=== PATIENT | female | born 1985 | race Caucasian/White ===

== ENCOUNTER 2021-05-20 15:27 | Outpatient (REF) | payer OTHER, SELFPAY ==
[2021-05-20 16:02] LABS: MANUAL DIFF FLAG NO
[2021-05-20 16:03] LABS: Basophils Percent Auto 0.3 % (0-2); Eosinophils Absolute Auto 0.3 X10*3/uL (0.0-0.4); Eosinophils Percent Auto 2.2 % (0-4); Hematocrit 41.6 % (37-47); Imm Gran Abs Auto 0.02 X10*3/uL (0.00-0.03); Imm Gran Pct Auto 0.2 % (0.0-0.4); Lymphocytes Absolute Auto 2.9 X10*3/uL (1.2-4.9); Lymphocytes Percent Auto 25.5 % (20-40); Mean Corpuscular HGB Conc 31.3 g/dl (31.0-35.0); Mean Corpuscular Hemoglobin 25.5 pg (27.0-33.0); Mean Corpuscular Volume 81.6 fL (80-98); Monocytes Absolute Auto 0.8 X10*3/uL (0.1-1.2); Monocytes Percent Auto 6.8 % (2-11); Neutrophils Absolute Auto 7.4 X10*3/uL (2.0-8.3); Platelet Count 270 X10*3/uL (160-400); Red Cell Distribution Width 14.9 % (11.0-16.0); White Blood Count 11.3 X10*3/uL (4.8-10.8)
[2021-05-20 16:33] LABS: Alanine Aminotransferase 14 U/L (0-31); Albumin Level 4.2 g/dL (3.5-5.0); Alkaline Phosphatase 95 U/L (39-117); Aspartate Amino Transferase 18 U/L (5-31); Bilirubin Direct < 0.2 mg/dL (0.0-0.5); Bilirubin Total 0.3 mg/dL (0.0-1.0); Iron 32 mcg/dL (30-160); Percent Iron Saturation 7 % (15-50); Total Iron Binding Capacity 471 mcg/dL (228-428); Unsaturated Iron Binding 439 ug/dL
[2021-05-20 16:53] LABS: Ferritin 7 ng/mL (10-122)
== END 2021-05-20 15:28 | disposition home or self-care (01) ==
LOC: HO.LAB 15:27
PROVIDERS: PCP Internal Medicine; Visit Provider Internal Medicine
DX: K51.00 Ulcerative (chronic) pancolitis without complications (principal)
CPT/HCPCS: 36415; 80076; 82728; 83540; 85025

== ENCOUNTER 2021-07-01 14:39 | Outpatient (REF) | payer SELFPAY ==
[2021-07-03 20:11] LABS: TS Negative Control Passed; TS Panel A 0; TS Panel B 0; TS Positive Control Passed; TSpotTB Negative (SeeBelow)
== END 2021-07-01 14:40 | disposition home or self-care (01) ==
LOC: HO.LAB 14:39
PROVIDERS: PCP Internal Medicine; Visit Provider Internal Medicine
DX: K51.00 Ulcerative (chronic) pancolitis without complications (principal); Z11.1 Encounter for screening for respiratory tuberculosis
CPT/HCPCS: 36415; 86481

== ENCOUNTER 2023-02-05 09:06 | Outpatient (REF) | payer OTHER, SELFPAY ==
[2023-02-05 09:15] LABS: MANUAL DIFF FLAG NO
[2023-02-05 09:39] LABS: Basophils Percent Auto 0.5 % (0-2); Eosinophils Absolute Auto 0.2 X10*3/uL (0.0-0.4); Eosinophils Percent Auto 2.1 % (0-4); Hematocrit 43.1 % (37.0-47.0); Hemoglobin 13.6 g/dl (12.0-16.0); Imm Gran Abs Auto 0.03 X10*3/uL (0.00-0.03); Imm Gran Pct Auto 0.4 % (0.0-0.4); Lymphocytes Absolute Auto 2.3 X10*3/uL (1.2-4.9); Lymphocytes Percent Auto 29.4 % (20-40); Mean Corpuscular HGB Conc 31.6 g/dl (31.0-35.0); Mean Corpuscular Hemoglobin 28.6 pg (27.0-33.0); Mean Corpuscular Volume 90.7 fL (80.0-98.0); Mean Platelet Volume 10.7 fL (9.4-12.3); Monocytes Absolute Auto 0.5 X10*3/uL (0.1-1.2); Monocytes Percent Auto 6.2 % (2-11); Neutrophils Absolute Auto 4.8 x10*3/uL (2.0-8.3); Neutrophils Percent Auto 61.4 % (45-73); Platelet Count 247 X10*3/uL (160-400); Red Blood Count 4.75 X10*6/uL (4.20-5.50); Red Cell Distribution Width 12.7 % (11.0-16.0); White Blood Count 7.8 X10*3/uL (4.8-10.8)
[2023-02-05 10:25] LABS: Alanine Aminotransferase 15 U/L (0-31); Alkaline Phosphatase 80 U/L (39-117); Anion Gap 10 (12-20); Aspartate Amino Transferase 15 U/L (5-31); Bilirubin Total 0.5 mg/dL (0.0-1.0); Blood Urea Nitrogen 14 mg/dL (9-16); Calcium 9.5 mg/dL (8.4-10.2); Carbon Dioxide 26 mmol/L (22-29); Chloride 110 mmol/L (96-108); Cholesterol 192 mg/dL; Estimated Glomerular Filt Rate > 60; Glucose Random 90 mg/dL (60-115); HDL Cholesterol 40 mg/dL; LDL Cholesterol Calculated 136 mg/dl; Potassium 4.7 mmol/L (3.3-5.1); Sodium 141 mmol/L (135-145); Total Protein 7.1 g/dL (6.5-8.0); Triglycerides 80 mg/dL
[2023-02-05 10:33] LABS: HBS Num1 116.58 mIU/mL (0-7.99); TSH reflex Free T4 0.62 uIU/mL (0.32-4.0); Vitamin D 25-OH Total 32.3 ng/mL (>30); ~Hepatitis B Surface Antibody REACTIVE (Nonreactive)
[2023-02-07 01:23] LABS: Rubeola IgG (Measles) >300.00 AU/mL
[2023-02-07 01:33] LABS: Rubella IgG Antibody 2.31 Index
[2023-02-07 13:42] LABS: TS Negative Control Passed; TS Panel A 0; TS Panel B 0; TS Positive Control Passed; TSpotTB Negative (Negative)
== END 2023-02-05 09:07 | disposition home or self-care (01) ==
LOC: HO.LAB 09:06
PROVIDERS: PCP Internal Medicine; Visit Provider Nurse Practitioner Family
DX: Z01.84 Encounter for antibody response examination (principal); Z13.0 Encounter for screening for diseases of the blood and blood-forming organs and certain disorders involving the immune mechanism; Z13.220 Encounter for screening for lipoid disorders; Z13.1 Encounter for screening for diabetes mellitus; Z13.29 Encounter for screening for other suspected endocrine disorder; Z13.21 Encounter for screening for nutritional disorder
CPT/HCPCS: 36415; 80053; 80061; 82306; 84443; 85025; 86481; 86706; 86735; 86762; 86765

== ENCOUNTER 2023-02-22 09:00 | Outpatient (REF) | payer OTHER, SELFPAY | END 2023-02-22 09:01 | disposition home or self-care (01) | LOC: HO.LAB 09:00 | PROVIDERS: PCP Internal Medicine; Visit Provider Internal Medicine | DX: R76.0 Raised antibody titer (principal) | CPT/HCPCS: 36415; 86787 ==

== ENCOUNTER 2023-06-01 15:01 | Outpatient (AMB) | payer OTHER, SELFPAY ==
[2023-06-01 15:04] VITALS: BP 122/62; BMI 22.6
--- NOTE | 2023-06-01 15:04 | A.OFFVIS_ITS ---
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 she had a in [facility]. she was diagnosed with ulcerative colitis which took a while to figure out and then COVID hit so she has not been here since all of that happened. She has never had an abnormal Pap smear her had a vasectomy when there baby was of couple months old so she has not needed control since she gets regular periods. Sometimes she gets folliculitis in her groin and it comes and goes. She is on the tail end of her period Now. 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 Medical History (Updated 06/01/23 @ 15:55 by Lima Moore CNM) JONAS (iron deficiency anemia) Ulcerative (chronic) pancolitis without complications Surgical History Previous section Social History Housing: House Patient Tobacco Use Status: Never used Tobacco Tobacco use type: Cigarette e-Cigarette/Vaping Use: Never Used service: No Current occupational status: employed and student Female Reproductive History Menstrual Date of last menstrual period: 05/23/23 Total pregnancies: 4 Number of Living Children: 3 Ab spontaneous: 1 Physical Exam Vital Signs: Last Vital Signs BP 122/62 06/01/23 15:04 BMI result Body Mass Index 22.6 Const General: healthy appearing, comfortable, no acute distress, well developed and alert Nutritional Appearance: average body habitus Orientation/consciousness: patient oriented x3 Limitations: no limitations HEENT Head: Yes normocephalic Neck Neck: Yes normal visual inspection Chest Chest palpation & inspection: normal inspection of the chest Breast/axilla inspection: normal inspection of the breasts and normal inspection of the axillae Breast/axilla palpation: normal palpation of the breasts and normal palpation of the axillae Resp Effort & Inspection: normal respiratory effort GI Inspection: Yes normal to inspection, No Abdominal wall edema and No distended Palpation (GI): Soft to palpation and nontender Other: Very well-healed scar. External exam difficult to see evidence of past folliculitis in groin that is extremely well healed and not swollen or inflamed at all vagina is pink and moist. Cervix is parous pink moist with normal discharge consistent with end of menses. Uterus is small anteverted mobile nontender. Adnexa nontender. Fair to good tone with Kegel. General: Yes bladder normal to palpation External Female Exam: normal external appearance and normal appearance of the urethra Speculum Exam - Vagina: normal appearance of the vagina, normal palpation and normal vaginal discharge Speculum Exam - Cervix: normal appearance of the cervix, normal palpation and nontender Bimanual exam- vagina & uterus: normal bimanual exam, normal palpation, uterine size normal, bladder normal to palpation, consistency normal, normal palpation, uterine mobility normal, uterine shape normal, No Cervical tenderness present, non-tender and no cervical motion tenderness Bimanual Exam- Adnexa, other: normal adnexae, no masses, normal and No adnexal tenderness Neuro General: patient oriented x3 Assessment & Plan Assessment & Plan (1) Well woman exam with routine gynecological exam: Code(s): Z01.419 - Encounter for gynecological examination (general) (routine) without abnormal findings (2) Cervical cancer screening: Code(s): Z12.4 - Encounter for screening for malignant neoplasm of cervix (3) Screen for sexually transmitted diseases: Code(s): Z11.3 - Encounter for screening for infections with a predominantly sexual mode of transmission (4) Breast cancer screening: Code(s): Z12.39 - Encounter for other screening for malignant neoplasm of breast (5) Relies on partner vasectomy for contraception: Code(s): Z91.89 - Other specified personal risk factors, not elsewhere classified Plan -----Discussed in this visit the following: healthy balanced diet, regular and consistent exercise, getting recommended health screens, doing the best she can for her particular health concerns, kegel exercises, pap smear screening and followup recommendations, mammography screening and SBE, normal changes in cycles in her life stage--- . Orders: Orders Bacterial Vaginosis Panel Today Z01.419 - Encounter for gynecological examination (general) (routine) without abnormal findings CT NG by PCR Today Z01.419 - Encounter for gynecological examination (general) (routine) without abnormal findings Pap Smear Today Z01.419 - Encounter for gynecological examination (general) (routine) without abnormal findings Coding Level of Care Code New Pt Prev Care 18-39yr([id number] Diagnoses Well woman exam with routine gynecological exam Z01.419 Cervical cancer screening Z12.4 Screen for sexually transmitted diseases Z11.3 Breast cancer screening Z12.39 Relies on partner vasectomy for contraception Z91.89
== END 2023-06-04 07:22 | disposition home or self-care (01) ==
LOC: HO.HWS 15:01
PROVIDERS: PCP Internal Medicine; Visit Provider Advanced Practice Midwife
DX: Z01.419 Encounter for gynecological examination (general) (routine) without abnormal findings (principal); Z12.4 Encounter for screening for malignant neoplasm of cervix; Z11.3 Encounter for screening for infections with a predominantly sexual mode of transmission; Z12.39 Encounter for other screening for malignant neoplasm of breast; Z91.89 Other specified personal risk factors, not elsewhere classified
CPT/HCPCS: 99385

== ENCOUNTER 2023-06-01 15:01 | Outpatient (REF) | payer OTHER, SELFPAY ==
[2023-06-02 04:42] LABS: CT PCR NOT DETECTED (Not Detect.); NG PCR NOT DETECTED (Not Detect.)
[2023-06-02 12:50] LABS: BV Int Neg Control Negative (Negative); BV Int Pos Control Positive (Positive)
[2023-06-09 03:14] LABS: HPV mRNA E6/E7 rflx Not Detected (Not Detected)
== END 2023-06-01 15:02 | disposition home or self-care (01) ==
LOC: HO.LNP 15:01
PROVIDERS: PCP Internal Medicine; Visit Provider Advanced Practice Midwife
DX: Z01.419 Encounter for gynecological examination (general) (routine) without abnormal findings (principal); Z11.51 Encounter for screening for human papillomavirus (HPV)
CPT/HCPCS: 0353U; 87480; 87510; 87624; 87660; 88142

== ENCOUNTER 2023-12-07 22:59 | Emergency (ER) | payer OTHER, SELFPAY ==
[2023-12-07 23:03] VITALS: BP 113/76; PULSE 67; RESP 16; TEMP 36.7; O2SAT 98; BMI 22.5
[2023-12-07 23:34] LABS: MANUAL DIFF FLAG NO
[2023-12-07 23:35] LABS: Basophils Percent Auto 0.5 % (0-2); Eosinophils Percent Auto 0.9 % (0-4); Hematocrit 43.2 % (37.0-47.0); Hemoglobin 14.6 g/dl (12.0-16.0); Imm Gran Abs Auto 0.01 X10*3/uL (0.00-0.03); Imm Gran Pct Auto 0.2 % (0.0-0.4); Lymphocytes Percent Auto 46.9 % (20-40); Mean Corpuscular HGB Conc 33.8 g/dl (31.0-35.0); Mean Corpuscular Hemoglobin 29.3 pg (27.0-33.0); Mean Corpuscular Volume 86.7 fL (80.0-98.0); Mean Platelet Volume 10.7 fL (9.4-12.3); Monocytes Absolute Auto 0.7 X10*3/uL (0.1-1.2); Monocytes Percent Auto 16.9 % (2-11); Neutrophils Absolute Auto 1.5 x10*3/uL (2.0-8.3); Neutrophils Percent Auto 34.6 % (45-73); Platelet Count 151 X10*3/uL (160-400); Red Blood Count 4.98 X10*6/uL (4.20-5.50); Red Cell Distribution Width 12.1 % (11.0-16.0); White Blood Count 4.3 X10*3/uL (4.8-10.8)
[2023-12-07 23:37] VITALS: BP 97/66; PULSE 66; RESP 17; TEMP 36.6; O2SAT 98
[2023-12-07 23:46] LABS: IDNOW Serial# 08D9AD1C; Influenza A Positive (Negative)
[2023-12-07 23:48] LABS: COVID-19 Test Negative (Negative); IDNOW Serial# 152EDE1D
[2023-12-07 23:51] LABS: Influenza B2 Negative (Negative)
[2023-12-07 23:53] LABS: Alanine Aminotransferase 19 U/L (0-31); Albumin Level 3.7 g/dL (3.5-5.0); Alkaline Phosphatase 77 U/L (39-117); Anion Gap 12 (12-20); Aspartate Amino Transferase 25 U/L (5-31); Bilirubin Direct < 0.2 mg/dL (0.0-0.5); Bilirubin Total 0.2 mg/dL (0.0-1.0); Blood Urea Nitrogen 9 mg/dL (9-16); Carbon Dioxide 24 mmol/L (22-29); Chloride 103 mmol/L (96-108); Creatinine Clr Calc Pharmacy 97.1; Estimated Glomerular Filt Rate > 60; Glucose Random 120 mg/dL (60-115); Lipase 24 U/L (8-78); Potassium 2.7 mmol/L (3.3-5.1); Sodium 136 mmol/L (135-145); Total Protein 7.3 g/dL (6.5-8.0)
[2023-12-08] MEDS: Acetaminophen 325 MG TABLET 975 MG PO (00:01)
[2023-12-08] MEDS: Ibuprofen 400 MG TABLET PO (00:01)
[2023-12-08] MEDS: ondansetron HCL 4 MG/2 ML VIAL IVPUSH (00:01)
[2023-12-08] MEDS: 0.9 % Sodium Chloride 1,000 ML 999 ML IV (00:02)
[2023-12-08 00:06] LABS: Magnesium 1.6 mg/dL (1.6-2.6)
--- NOTE | 2023-12-08 00:15 | ED.NAVMDI ---
HPI - Nausea/Vomiting/Diarrhea General Chief complaint: Nausea/Vomiting/Diarrhea Stated complaint: GI symptoms Time Seen by Provider: 12/07/23 23:38 Source: patient Mode of arrival: ambulatory History of Present Illness HPI Narrative: 38-year-old female presents with persistent cough/fever/headache since Sunday with intermittent nausea/vomiting/diarrhea. Patient states that today his in the 1st day she has been able to tolerate some liquids but otherwise has decreased p.o. intake and states feeling weak. Related Data Home Medications Medication Instructions Recorded Confirmed adalimumab 40 mg/0.8 mL mg subcut 01/25/23 06/01/23 subcutaneous pen kit (Humira Pen) Previous Rx's Medication Instructions Recorded metronidazole 0.75 % (37.5 mg/5 1 appful vaginal BEDTIME 5 days 06/26/23 gram) vaginal gel #70 grams ondansetron 4 mg disintegrating 4 mg PO Q8H PRN nausea and 12/08/23 tablet vomiting 4 days #10 tabs Allergies Allergy/AdvReac Type Severity Reaction Status Date / Time No Known Allergies Allergy Verified 12/07/23 23:07 [No Known Allergies*] Review of Systems Review of Systems: Pertinent positives and negatives as stated in HPI PMFSH Past Medical History Source: nursing notes reviewed Medical History JONAS (iron deficiency anemia) Ulcerative (chronic) pancolitis without complications Surgical History Previous section Social History Social History Housing: House Patient Tobacco Use Status: Never used Tobacco Tobacco use type: Cigarette e-Cigarette/Vaping Use: Never Used Advance Directives: No Advance Directives Information Provided: No service: No Current occupational status: employed and student Physical Exam Vital Signs: Vital Signs: Last Vital Signs Temp 97.8 F 12/07/23 23:37 Pulse 66 12/07/23 23:37 Resp 17 12/07/23 23:37 BP 97/66 12/07/23 23:37 Pulse Ox 98 12/07/23 23:37 O2 Del Method Room Air 12/07/23 23:37 BMI result Body Mass Index 22.5 VITAL SIGNS: Reviewed. GENERAL: Well developed, well nourished, in no acute distress. HEAD: Normocephalic/atraumatic EYES: PERRLA, EOMI EARS: Ext canals without abnormality, TMs non-bulging and non-erythematous NOSE: Nasal congestion OROPHARYNX: no oral lesions noted, posterior pharynx clear and non-erythematous without noted tonsillar enlargement/erythema/exudates NECK: Supple, no adenopathy LUNGS: Normal breath sounds. No adventitious sounds or accessory muscle use. SpO2<98> CARDIOVASCULAR: Regular rate and rhythm without noted murmurs ABDOMEN: Soft, non-tender, non-distended with bowel sounds. MUSCULOSKELETAL: No tenderness, deformities, or effusions noted on gross inspection. EXTREMITIES: No cyanosis, clubbing or edema. SKIN: Inspection of the skin reveals no rashes NEUROLOGIC: Alert and oriented x 4. Strength and sensation to light touch were grossly intact x 4. Medications Administered Discontinued Medications Generic Name Dose Route Start Last Admin Trade Name Freq PRN Reason Stop Dose Admin Acetaminophen 975 mg 12/07/23 23:53 12/08/23 00:01 Acetaminophen 325 Mg Tablet PO 12/07/23 23:54 975 mg ONCE ONE Administration Sodium Chloride 1,000 mls @ 999 mls/hr 12/07/23 23:45 12/08/23 00:02 Ns IV 12/08/23 00:45 999 mls/hr .Q1H1M KSENIA Administration Magnesium Sulfate/Dextrose 1 gm in 100 mls @ 300 mls/hr 12/08/23 00:18 12/08/23 01:29 Magnesium Sulfate/D5w IV 12/08/23 00:37 300 mls/hr ONCE ONE Administration Ibuprofen 400 mg 12/07/23 23:53 12/08/23 00:01 Ibuprofen 400 Mg Tablet PO 12/07/23 23:54 400 mg ONCE ONE Administration Ondansetron HCl 4 mg 12/07/23 23:54 12/08/23 00:01 Ondansetron Hcl 4 Mg/2 Ml Vial IVPUSH 12/07/23 23:55 4 mg ONCE ONE Administration Potassium Chloride 60 meq 12/08/23 00:18 12/08/23 01:29 Potassium Chloride Er 20 Meq Tab.Er.Prt PO 12/08/23 00:19 60 meq ONCE ONE Administration Medical Decision Making Medical Decision Making MDM Narrative: 38-year-old female with history and clinical presentation, DDX: Viral illness, gastroenteritis, , UTI I reviewed all investigations and hematologic indices consistent with viral illness with a slight leukopenia and thrombocytopenia no evidence of anemia. Chemistry indices without demonstrated DELFINO but borderline magnesium and low potassium for which patient will receive 1 g magnesium sulfate followed by 2-10 mEq potassium chloride via IV and 60 mEq orally. Patient also received 1 L of IV fluids. Viral testing positive for flu. Signed out to Dr You adame/mohamud after IVF and electrolytes Differential Diagnosis Differential Diagnoses: The differential diagnosis associated with the presentation includes Please see the discussion above Admission/Observation Consideration of admission/observation: Escalation of care including admission/observation considered Please see the discussion above Lab Data MDM Lab Attestation statement: I reviewed the patient's lab results. Please see the discussion above 12/07/23 23:26 12/07/23 23:26 Labs: Lab Results 12/07/23 Range/Units 23:26 WBC 4.3 L (4.8-10.8) X10*3/uL RBC 4.98 (4.20-5.50) X10*6/uL Hgb 14.6 (12.0-16.0) g/dl Hct 43.2 (37.0-47.0) % MCV 86.7 (80.0-98.0) fL MCH 29.3 (27.0-33.0) pg MCHC 33.8 (31.0-35.0) g/dl RDW 12.1 (11.0-16.0) % Plt Count 151 L D (160-400) X10*3/uL MPV 10.7 (9.4-12.3) fL Immature Gran % (Auto) 0.2 (0.0-0.4) % Neut % (Auto) 34.6 L (45-73) % Lymph % (Auto) 46.9 H (20-40) % [place] % (Auto) 16.9 H (2-11) % Eos % (Auto) 0.9 (0-4) % Baso % (Auto) 0.5 (0-2) % Lymph # (Auto) 2.0 (1.2-4.9) X10*3/uL Sweet [place] # (Auto) 0.7 (0.1-1.2) X10*3/uL Eos # (Auto) 0.0 (0.0-0.4) X10*3/uL Baso # (Auto) 0.0 (0.0-0.2) X10*3/uL Abs Immat Gran (auto) 0.01 (0.00-0.03) X10*3/uL Absolute Neuts (auto) 1.5 L (2.0-8.3) x10*3/uL Absolute Nucleated RBC 0.000 (0.0-0.012) X10*3/uL Nucleated RBC % (auto) 0.0 (0.0-0.2) /100WBC Sodium 136 (135-145) mmol/L Potassium 2.7 L* (3.3-5.1) mmol/L Chloride 103 (96-108) mmol/L Carbon Dioxide 24 (22-29) mmol/L Anion Gap 12 (12-20) BUN 9 (9-16) mg/dL Creatinine 0.70 (0.5-1.4) mg/dL Estim Creat Clear Calc 97.1 Estimated GFR > 60 Random Glucose 120 H (60-115) mg/dL Calcium 9.0 (8.4-10.2) mg/dL Magnesium 1.6 (1.6-2.6) mg/dL Total Bilirubin 0.2 (0.0-1.0) mg/dL Direct Bilirubin < 0.2 (0.0-0.5) mg/dL AST 25 (5-31) U/L ALT 19 (0-31) U/L Alkaline Phosphatase 77 (39-117) U/L Total Protein 7.3 (6.5-8.0) g/dL Albumin 3.7 (3.5-5.0) g/dL Lipase 24 (8-78) U/L COVID-19 (LIZETH) Negative (Negative) COVID-19 Clin Com See Note Influenza Type A (VERONIQUE) Positive A (Negative) Influenza Type B (VERONIQUE) Negative (Negative) Influenza A & B Note See Note External Record Review External record reviewed: Outpatient record and Prior outpatient labs Critical Care Time Critical Care Time Critical Care Time: Yes Total Critical Care Time: 30 Attestation: I personally attest to this time spent taking care of the patient. Discharge Plan Discharge Clinical Impression: Dehydration, Viral syndrome, Influenza A, Hypokalemia Patient Disposition: Home, Self-Care Instructions: Dehydration (ED), Potassium Content of Foods List (ED), Hypokalemia (ED), Influenza (ED), Viral Syndrome (ED) Additional Instructions: 1. Continue to stay well hydrated. 2. Follow-up with your primary care doctor. Return to the ER for any worsening symptoms. Prescriptions: New ondansetron 4 mg tablet,disintegrating 4 mg PO Q8H PRN (Reason: nausea and vomiting) 4 Days Qty: 10 0RF No Action metronidazole 0.75 % (37.5mg/5 gram) gel 1 appful vaginal BEDTIME 5 Days Qty: 70 0RF Humira Pen 40 mg/0.8 mL pen injector kit subcut
[2023-12-08] MEDS: Magnesium Sulfate/D5W 1 GM/100 ML PIGGYBACK IV (01:29)
[2023-12-08] MEDS: Potassium Chloride ER 20 MEQ TAB.ER.PRT 60 MEQ PO (01:29)
[2023-12-08] MEDS: Potassium Chloride/H20 10 MEQ/100 ML PIGGYBACK 100 MEQ IV ×2 (02:39→03:55)
[2023-12-08 05:18] VITALS: BP 102/72; PULSE 67; RESP 18; O2SAT 98
== END 2023-12-08 05:38 | disposition home or self-care (01) ==
PROVIDERS: Student in an Organized Health Care Education/Training Program; Emergency Provider Internal Medicine
DX: J10.1 Influenza due to other identified influenza virus with other respiratory manifestations (principal); B34.9 Viral infection, unspecified; E86.0 Dehydration; E87.6 Hypokalemia; Z11.52 Encounter for screening for COVID-19; R11.2 Nausea with vomiting, unspecified; R51.9 Headache, unspecified; R05.9 Cough, unspecified
CPT/HCPCS: 36415; 80053; 82248; 83690; 83735; 85025; 87502; 87635; 96361; 96365; 96367; 96375; 99284; 99285; J2405; J3475; J3480

== ENCOUNTER 2024-02-19 13:47 | Outpatient (AMB) | payer OTHER, SELFPAY ==
--- NOTE | 2024-02-19 13:58 | A.OFFPC_ITS ---
Vital Signs 3 02/19/24 14:09 Height 5 ft 5 in Weight 139 lb 4 oz BMI 23.2 BP 98/62 Blood Pressure Location Lt brachial Position Sitting Respiration 12 Pulse 65 Pulse Source Pulse Oximeter Temp 98.4 F Temp Source Oral Pulse Oximetry (%) 97 Oxygen Delivery Method Room Air Intake Visit Reasons: Arm Gout Intake Note: Growth on right arm and head. 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 Is last menstrual period known: Yes Last menstrual period: 02/12/24 Patient : No Allergies No Known Allergies [No Known Allergies*] Allergy (Verified 02/19/24 13:59) Tobacco use date assessed: 02/19/24 Dental Screening Dental Screen Date: 02/19/24 Did you have a dental visit in the last 12 months?: No Did you have a dental problem in the last 6 months where you did not have access to dental care?: Yes Was dental information given to patient?: Patient has dentist [facility] Medical History JONAS (iron deficiency anemia) Ulcerative (chronic) pancolitis without complications Surgical History Previous section Family History (Updated 02/19/24 @ 14:10 by Rhonda Guillermo CMA) Father Alcoholism Social History Housing: House Patient Tobacco Use Status: Never used Tobacco Tobacco use type: Cigarette e-Cigarette/Vaping Use: Never Used Second Hand Smoke Exposure: No Patient : No service: No Current occupational status: employed and student 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[employer] Current occupational exposures/hazards: No Cognitive needs: No Hearing needs: No Vision needs: No Female Reproductive History Menstrual Date of last menstrual period: 02/12/24 Questionnaire PHQ-9 Over the last 2 weeks, how often have you been bothered by any of the following problems? 1. Little interest or pleasure in doing things: not at all 2. Feeling down, depressed, or hopeless: not at all 3. Trouble falling or staying asleep, or sleeping too much: not at all 4. Feeling tired or having little energy: not at all 5. Poor appetite or overeating: not at all 6. Feeling bad about yourself - or that you are a failure or have let yourself or your family down: not at all 7. Trouble concentrating on things, such as reading the newspaper or watching television: not at all 8. Moving or speaking so slowly that other people could have noticed. Or the opposite - being so fidgety or restless that you have been moving around a lot more than usual: not at all 9. Thoughts that you would be better off or of hurting yourself in some way: not at all Total score: 0 Depression Screening Interpretation: Negative (noted) Depression Screening Done: Yes 20343 - PHQ-9 Billing: Yes Source: Developed by Drs. Aniceto Donaldson, Radha Cisneros, Jake Gtz and colleagues, with an educational rafael from [email or web address] Thrive Questionnaire Date Thrive assessed: 02/19/24 I am a: Patient What is your living situation today?: I have a place to live, but I am worried about losing it in the future Within the past 12 months, did the food you bought not last and you didn't have the money to get more?: Never true Within the past 12 months, did you worry whether your food would run out before you got money to buy more?: Never true Do you have trouble paying for medicines?: No Do you have trouble getting transportation to medical appointments?: No Do you have trouble paying your heating and electricity bill?: No Do you have trouble taking care of your child, family member or friend?: No Do you have trouble with day-to-day activities such as bathing, preparing meals, shopping, managing finances, etc.?: No Are you currently unemployed and looking for a job?: No Are you interested in more education?: No Please select the resources that you would like help with: None THRIVE Score: 1 VIVIEN-7 AMB Questionnaire VIVIEN-7 Date VIVIEN - 7 assessed: 02/19/24 Feeling nervous, anxious, or on edge: 0 = Not at all Not being able to stop or control worryin = Not at all Worrying too much about different things: 0 = Not at all Trouble relaxin = Not at all Being so restless that it is hard to sit still: 0 = Not at all Becoming easily annoyed or irritable: 0 = Not at all Feeling afraid as if something awful might happen: 0 = Not at all Total VIVIEN-7 score (0-4 normal; 5-9 mild; 10-14 moderate; 15-21 severe): 0 Source: Developed by Drs. Aniceto Donaldson, Radha Cisneros, Jake Gtz and colleagues, with an educational rafael from [email or web address]. VIVIEN-7 Assessment Billing VIVIEN-7 Assessment Tool: VIVIEN-7 Assessment 03998 Review of Systems Const Details: see HPI Physical exam (Primary Care) Tobacco/Smoking Status: Tobacco use Status Tobacco use date assessed 02/19/24 02/19/24 14:02 Patient Tobacco Use Status Never used Tobacco 02/19/24 14:02 Tobacco use type Cigarette 02/19/24 14:02 e-Cigarette/Vaping Use Never Used 02/19/24 14:02 Depression Screening Interpretation: Negative (noted) Thrive Assessment: Date of Thrive Assessment Date Thrive assessed 01/25/23 02/19/24 14:02 Const Other: PHYSICAL EXAM: GENERAL: Alert and oriented x 3. NAD EYES: EOMI. Anicteric. HENT: Moist mucous membranes. LUNGS: Clear to auscultation CARDIOVASCULAR: Regular rate and rhythm. ABDOMEN: Soft, non-tender EXTREMITIES: No edema. Non-tender. SKIN: see below NEUROLOGIC: No focal neurological deficits PSYCHIATRIC: Cooperative. Appropriate mood and affect. HENMT Head: Yes scalp lesion (raised roughened erythematous lesions ~0.5cm midline frontal scalp) Head images: 2 1. see notes Skin Lesions: lesion noted (right forearm) right forearm size (0.5cm), borders well- defined, consistency and morphology dome-shaped Assessment and Plan Assessment & Plan (1) JONAS (iron deficiency anemia): Comment: recheck abnormal 11/2023 labs (flu at the time) Code(s): D50.9 - Iron deficiency anemia, unspecified (2) Rash and nonspecific skin eruption: Comment: referral to dermatology to r/o BCC Code(s): R21 - Rash and other nonspecific skin eruption (3) Ulcerative (chronic) pancolitis without complications: Code(s): K51.00 - Ulcerative (chronic) pancolitis without complications Orders: Orders 2 Complete Blood Count Man Dif Today R79.89 - Other specified abnormal findings of blood chemistry Referrals 2 Dermatology Referral R21 - Rash and other nonspecific skin eruption Coding Level of Care Code Est Pt Level 4 (25879) Diagnoses JONAS (iron deficiency anemia) D50.9 Rash and nonspecific skin eruption R21 Ulcerative (chronic) pancolitis without complications K51.00 Additional Codes VIVIEN-7 Assessment Billing - VIVIEN-7 Assessment Tool: VIVIEN-7 Assessment [id number] ([id number])
[2024-02-19 14:09] VITALS: BP 98/62; PULSE 65; RESP 12; TEMP 36.9; O2SAT 97; BMI 23.2
== END 2024-02-19 15:23 | disposition home or self-care (01) ==
PROVIDERS: Visit Provider Internal Medicine
DX: D50.9 Iron deficiency anemia, unspecified (principal); R21 Rash and other nonspecific skin eruption; K51.00 Ulcerative (chronic) pancolitis without complications
CPT/HCPCS: 99213

== ENCOUNTER 2024-06-03 09:10 | Outpatient (REF) | payer OTHER, SELFPAY ==
[2024-06-06 13:44] LABS: HPV mRNA E6/E7 Not Detected (Not Detected)
== END 2024-06-03 09:11 | disposition home or self-care (01) ==
LOC: HO.LNP 09:10
PROVIDERS: PCP Internal Medicine; Visit Provider Advanced Practice Midwife
DX: Z01.419 Encounter for gynecological examination (general) (routine) without abnormal findings (principal); Z11.51 Encounter for screening for human papillomavirus (HPV)
CPT/HCPCS: 87624; 88175

== ENCOUNTER 2024-06-03 09:10 | Outpatient (AMB) | payer OTHER, SELFPAY ==
--- NOTE | 2024-06-03 09:14 | A.OFFVIS_ITS ---
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 Doing well with no concerns. She tries to eat healthy and stays active with exercise. Regular monthly menses x7d. Currently is sexually active, vasectomy. She denies vaginal itching and irritation. STI screening offered; she declines. Denies family history of ovarian or colon cancer. FH breast cancer-maternal cousin. Last pap smear 2022, ASCUS, prior Pap 2007 with ASCUS. Had negative pap screenings in [place], no records available. [facility] Medical History (Updated 06/03/24 @ 09:58 by Renetta Castellano CNM) JONAS (iron deficiency anemia) Ulcerative (chronic) pancolitis without complications Surgical History Previous section Family History (Updated 06/03/24 @ 09:19 by MERNA Rosario) Father Alcoholism Family/Other History of breast cancer Social History (Updated 06/03/24 @ 09:53 by Renetta Castellano CNM) Housing: House Alcohol intake: current Alcohol intake frequency: holidays/special occasions only Patient Tobacco Use Status: Never used Tobacco Tobacco use type: Cigarette e-Cigarette/Vaping Use: Never Used Second Hand Smoke Exposure: No service: No Current occupational status: employed and student 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[employer], 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[employer] Current occupational exposures/hazards: No Sexual orientation: Straight/Heterosexual Gender identity: Female Cognitive needs: No Hearing needs: No Vision needs: No Female Reproductive History Menstrual Duration of menses: 6-7 days Date of last menstrual period: 05/27/24 control method: other (vasectomy) Total pregnancies: 4 Full term: 3 Number of Living Children: 3 Ab spontaneous: 1 Date of last pap smear: 06/27/21 ([place]) History of abnormal pap smear: Yes (2007 ascus) Review of Systems Const All systems reviewed & are unremarkable except as noted in HPI and below Reports as per HPI Eyes Reports no additional complaints ENT Reports no additional complaints Card Reports no additional complaints Resp Reports no additional complaints GI Reports as per HPI and Reports no additional complaints Reports as per HPI Musc Reports no additional complaints Skin/Breast Reports as per HPI Neuro Reports no additional complaints Psych Reports no additional complaints Endo Reports no additional complaints Marcos/Lymph Reports no additional complaints Aller/Immun Reports no additional complaints Physical Exam Vital Signs: Last Vital Signs BP 100/64 06/03/24 09:15 BMI result Body Mass Index 22.0 Const General: cooperative, healthy appearing, no acute distress, well developed and alert Orientation/consciousness: patient oriented x3 HEENT Head: Yes normal to inspection Eyes General: appearance normal, both eyes and all related structures Neck Neck: Yes normal visual inspection Thyroid: Thyroid normal Chest Chest palpation & inspection: normal inspection of the chest and other (no puckering, dimpling, peau de orange, retraction, discharge, masses) Breast/axilla inspection: normal inspection of the breasts Breast/axilla palpation: normal palpation of the breasts Resp Effort & Inspection: normal respiratory effort GI Inspection: Yes normal to inspection Palpation (GI): Soft to palpation Rectal Exam - Female: deferred General: Yes bladder normal to palpation External Female Exam: normal external appearance and normal appearance of the urethra Speculum Exam - Vagina: normal appearance of the vagina, normal palpation and normal vaginal discharge Speculum Exam - Cervix: normal appearance of the cervix and normal palpation Bimanual exam- vagina & uterus: normal bimanual exam, normal palpation, uterine size normal, bladder normal to palpation, normal palpation and non-tender Bimanual Exam- Adnexa, other: no masses Skin General skin exam: no rashes or lesions noted Rashes: no rashes Neuro General: patient oriented x3 Cognition (Neuro): normal cognition Extrem General: Yes normal to inspection Psych Attitude: cooperative Thought process: Normal thought process present Assessment & Plan Assessment & Plan (1) Well woman exam with routine gynecological exam: Code(s): Z01.419 - Encounter for gynecological examination (general) (routine) without abnormal findings Category: Medical Plan Discussed: Current recommendations for pap smears per ASCCP guidelines. Breast awareness and periodic breast exams. Maintain a healthy lifestyle including a well balanced diet and routine exercise. Mammogram after 40th. Patient verbalizes understanding and agrees to the plan of care. She was given opportunity to ask questions and all questions were answered to the best of my ability. RTO in one year for annual technical clerk examination. This note is constructed using voice recognition software. While every effort has been made to ensure accuracy, funeral professional errors may have been included. Orders: Orders MM tomosynthesis screening BI 07/21/24 Z12.31 - Encounter for screening mammogram for malignant neoplasm of breast PAP + HPV E6/E7 rfx Today Z01.419 - Encounter for gynecological examination (general) (routine) without abnormal findings Coding Level of Care Code Est Pt Prev Care 18-39y(98012) Diagnoses Well woman exam with routine gynecological exam Z01.419
[2024-06-03 09:15] VITALS: BP 100/64; BMI 22.0
== END 2024-06-03 09:57 | disposition home or self-care (01) ==
PROVIDERS: PCP Internal Medicine; Visit Provider Advanced Practice Midwife
DX: Z01.419 Encounter for gynecological examination (general) (routine) without abnormal findings (principal)
CPT/HCPCS: 99395

== ENCOUNTER 2025-08-10 22:28 | Emergency (ER) | payer OTHER, SELFPAY ==
[2025-08-10 22:34] VITALS: BP 109/65; PULSE 55; RESP 16; TEMP 36.2; O2SAT 100; BMI 19.4
--- OUTSIDE RECORDS SUMMARY | 2025-08-10 22:58 | XMS_ITS | Patient Health Record ---
Author Organization [facility] Address [address] [place] [address] Care Team Providers Care Resident Assistant Name Role Phone Magdalena Rosario Primary Care Provider UnavailAniceto Calles Unavailable [phone] Allergies Allergen (clinical drug ingredient) Drug/Non Drug Allergy documented on EMR Reaction Allergy Type Onset Date Status Seasonal IC Unknown Drug Allergy Activ e Reason For Referral No Information Medications Medication SIG (Take, Route, Frequency, Duration) Notes Start Date End Date Status Mesalamine 800 MG 1 tablet Orally Thre e times a day; Duration: 30 day(s) 02/08/2018 Not-Taking Apriso 0.375 GM 4 capsules in the morning Orally Once a day; Duration: 90 days 08/03/2020 Not-Taking Humira Pen 40 MG/0.8ML inject one pen subcutaneously every other week. refrigerate. Although reports that she was only using them every other week at the 04/2021 OV Active Humira Pen 40 MG/0.8ML 1 Subcutaneous Every other week 01/04/2023 Active Humira (2 Pen) 40 MG/0.8ML INJECT 40MG SUBCUTANEOUSLY WEEKLY; Duration: 28 Active Apriso 0.375 GM TAKE 4 CAPSULES BY MOUTH IN THE MORNING ONCE A DAY; Duration: 90 Not-Taking Omeprazole 20 MG 1 Orally Once a day for reflux; Duration: 30 day(s) Not-Taking Immunizations Vaccine Route Administration Date Status Comme nts Influenza Unknown 12/11/2018 Refused Influenza Unknown 09/29/2020 Refused Social History Tobacco Use: Social History Observation Description Date Details (start date - stop date) Never Smoker NA - NA Tobacco Use/Smoking Question Answer Notes Patient is a nonsmoker Alcohol Screen Question Answer Notes Did you have a drink contain ing alcohol in the past year? Yes How often did you have a dri nk containing alcohol in the past year? Never (0 point) How many drinks did you have on a typical day when you were drinking in the past year? 1 or 2 drinks (0 point) How often did you have 6 or more drinks on one occasion in the past year? Never (0 point) Points 0 Interpretation Negative Section Notes: Nonsmoker; no sig alcohol Nonsmoker; no sig alcohol Nonsmoker; no sig alcohol Nonsmoker; no sig alcohol Nonsmoker; no sig alcohol Nonsmoker; no sig alcohol Nonsmoker; no sig alcohol Nonsmoker; no sig alcohol Problems Problem Type SNOMED Code ICD Code Onset Dates Problem Status W/U Status Risk Notes Problem Epigastric pain (39043807) Epigastric abdominal pain (R10.13) Active confirmed Problem Iron deficiency anemia due to chronic blood loss (912437293) Iron deficiency anemia due to chronic blood loss (D50.0) Active confirmed Problem Gastroesophageal reflux disease (123803511) GERD (gastroesophagea l reflux disease) (K21.9) Active confirmed Problem Chronic ulcerative pancolitis (029662276) Ulcerative pancolitis without complication (K51.00) Active confirmed Problem Anemia (842262965) Anemia, unspecified type (D64.9) Active confirmed Problem Diarrhea (40075168) Diarrhea, unspecified type (R19.7) Active confirmed Problem Chronic ulcerative pancolitis (673323515) Ulcerative chronic pancolitis without complications (K51.00) Active confirmed Plan Of Treatment Pending Test Test Name Order Date LIVER PROFILE 09/16/2018 LIVER PROFILE 09/29/2020 LIVER PROFILE 06/18/2018 LIVER PROFILE 01/30/2020 AMYLASE 09/16/2018 LIPASE 09/16/2018 IRON + IBC (FE) 03/15/2018 IRON + IBC (FE) 09/29/2020 IRON + IBC (FE) 06/18/2018 IRON + IBC (FE) 01/30/2020 IRON + IBC (FE) 10/28/2018 IRON + IBC (FE) 04/29/2018 FERRITIN 10/28/2018 FERRITIN 04/29/2018 FERRITIN 03/15/2018 FERRITIN 06/18/2018 FERRITIN 01/30/2020 CRP 07/16/2018 VITAMIN B12 AND FOLATE 04/29/2018 VITAMIN B12 AND FOLATE 03/15/2018 CBC w DIFF 10/28/2018 CBC w DIFF 09/29/2020 CBC w DIFF 04/29/2018 CBC w DIFF 06/18/2018 CBC w DIFF 01/30/2020 CBC w DIFF 03/15/2018 CBC with MANUAL DIFFERENTIAL 09/16/2018 SED RATE (ESR) 07/16/2018 HEPATITIS B PROFILE 04/29/2018 CLOSTRIDIUM DIFF TOXIN A&B (C DIFF) 06/29 GIARDIA AG, STOOL EIA 07/16/2018 OVA & PARASITES (O&P) 07/16/2018 CULTURE, STOOL 07/16/2018 PROMETHEUS TPMT ENZYME 04/29/2018 PROMETHEUS TPMT GENETICS 04/29/2018 HUMIRA LEVEL/AB (ADALIMUMAB LEVEL/AB) HUMIRA LEVEL/AB (ADALIMUMAB LEVEL/AB) STOOL WBC 07/16/2018 Ferritin 09/29/2020 T Spot TB 05/25/2021 Next Appt Details Provider Name:Aniceto Michaelle De Jesus , 10/27/2025 10:30:00 AM, [address] [place] [address], [address], [place], [address], Insurance Providers Payer Name Payer Address Payer Phone Subscriber Number Group Number Insured Name Patient Relationship to Insured Coverage Start Date Coverage End Date [facility] [address] [place] [phone] [id number] SILVIA ABERNATHY Self - patient is the insured Medical (General) History Medical History History ICD Code Denies MA,DM,CVA,Lung disease,renal dise ase Ulcerative colitis--diagnose d in 01/2018--pancolitis--Started Humira 07/2018--switching from the QOWeek to weekly in 04/2019. She has only been using the Humira QOWeek as of the 05/2023 OV. Anemia in relation to her ul cerative colitis--followed by Dr. Dimas-she has received iron infusions for this Surgical History Surgery Date(Month/Year) 2008
--- NOTE | 2025-08-10 23:13 | ED_ITS ---
HPI - Medical Clearance General Chief complaint: Body Fluid Exposure Stated complaint: stabbed w needle stick Time Seen by Provider: 08/10/25 23:10 Source: patient Mode of arrival: ambulatory Limitations: no limitations History of Present Illness ED Provider: Garrett LUNSFORD HPI Narrative: The patient is a 39-year-old female presenting to the ED for evaluation after an accidental needlestick while giving IM medication to a patient. The patient reports she gave an IM injection and then as she was pulling her hand and the needle away from the patient it accidentally struck her other gloved hand at the thenar eminence. Patient reports she felt a poking sensation, removed her glove and saw bleeding. Patient denies any acute somatic complaint. Patient reports she is vaccinated against Hep B. Patient washed the area extensively. The source patient is present in the ED and consented to testing. Related Information Home Medications ?Medication ?Instructions ?Recorded ?Confirmed adalimumab 40 mg/0.8 mL mg subcut 01/25/23 06/01/23 subcutaneous pen kit (Humira Pen) Previous Rx's ?Medication ?Instructions ?Recorded bictegravir 50 mg-emtricitabine 1 tab PO DAILY #28 tab s 08/11/25 200 mg-tenofovir alafenam 25 mg tablet (Biktarvy) ondansetron 4 mg disintegrating 4 mg PO Q8H PRN nausea and 08/11/25 tablet vomiting #14 tabs Allergies Allergy/AdvReac Type Severity Reaction Status Date / Time No Known Allergies (No Known Allergy Verified 08/10/25 22:36 Allergies*) Review of Systems 2 Review of Systems: Yes all other systems are reviewed and are negative PMFSH Past Medical History Medical History (Updated 08/11/25 @ 01:59 by Garrett Garcia PA-C) JONAS (iron deficiency anemia) Ulcerative (chronic) pancolitis without complications Surgical History Previous section Family History Family History (Updated 06/03/24 @ 09:19 by MERNA Rosario) Father Alcoholism Family/Other History of breast cancer Social History Social History (Updated 06/03/24 @ 09:53 by Renetta Castellano CNM) Housing: House Alcohol intake: current Alcohol intake frequency: holidays/special occasions only Patient Tobacco Use Status: Never used Tobacco Tobacco use type: Cigarette Smoked in Last 30 Days: No e-Cigarette/Vaping Use: Never Used Second Hand Smoke Exposure: No Use of substances other than those prescribed or required for medical reasons: No Advance Directives: No Advance Directives Information Provided: No Do you have a plan to hurt others: No Plan Patient : No service: No Current occupational status: employed and student 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 Vital signs as documented. HEAD: Atraumatic, normocephalic. EYES: EOMs grossly intact, pupils equal, conjunctiva clear, no exudate. ENT: Nares patent, no discharge. Airway patent, no audible stridor, visible mucosa is pink and moist without noted lesions. NECK: trachea is midline, no obvious masses or gross abnormalities. CHEST: Symmetric movement, normal appearance. LUNGS: Non-labored work of breathing. CARDIAC: No evidence of hypoperfusion. ABDOMEN: Nondistended, no obvious injury. : Deferred. EXTREMITIES: There was a punctate lesion consistent with needlestick puncture noted to the proximal thenar eminence of the right hand. No active bleeding. Moves all extremities spontaneously without reported pain. No obvious injury or deformity noted. NEURO: Alert and oriented x3, CN II-XII appear grossly intact. Cerebellar Functioning grossly intact. Speech clear and appropriate. SKIN: Warm, dry, color appropriate. No rashes or lesions noted. Medications Administered Discontinued Medications Generic Name Dose Route Start Last Admin Trade Name Freq PRN Reason Stop Dose Admin Bictegravir/Emtricitabine/Tenofovir 1 tab 08/11/25 01:53 08/11/25 02:30 Bictegrav/Emtricit/Tenofov Ala Tablet PO 08/11/25 01:54 1 tab ONCE ONE Administration Medical Decision Making Medical Decision Making [facility] Narrative: 11:49 PM 08/10/2025 (Clarissa LUNSFORD): The patient is a 39-year-old female presenting to the ED for evaluation after an accidental needlestick while giving IM medication to a patient. The patient reports she gave an IM injection and then as she was pulling her hand and the needle away from the patient it accidentally struck her other gloved hand at the thenar eminence. Patient reports she felt a poking sensation, removed her glove and saw bleeding. Patient denies any acute somatic complaint. Patient reports she is vaccinated against hep B. Patient washed the area extensively. The source patient is present in the ED and consented to testing. Exam reveals a punctate lesion consistent with needle puncture at the proximal aspect of the thenar eminence of the right hand, no active bleeding. We will obtain source patient testing and HIV/Hep B/Hep C and basic laboratory evaluation. Patient will be treated with pep immediately following negative urine test. 1:58 AM 08/11/2025 (Clarissa LUNSFORD): The patient's urine test is negative, laboratory evaluation is reassuring. The patient's serology testing is negative for HIV, hep C, and hepatitis-B. The source patient's testing was also reviewed in his negative for hep C, hepatitis-B, and HIV. The patient will be discharged with a 28 day course of Biktarvy. Admission/Observation Consideration of admission/observation: Escalation of care including admission/observation considered Lab Data [facility] Lab Attestation statement: I reviewed the patient's lab results. 08/10/25 23:47 08/10/25 23:47 Labs: Lab Results 08/10/25 08/11/25 Range/Units 23:47 00:23 WBC 9.2 (4.8-10.8) X10*3/uL RBC 4.43 (4.20-5.50) X10*6/uL Hgb 12.8 (12.0-16.0) g/dl Hct 39.9 (37.0-47.0) % MCV 90.1 (80.0-98.0) fL MCH 28.9 (27.0-33.0) pg MCHC 32.1 (31.0-35.0) g/dl RDW 12.8 (11.0-16.0) % Plt Count 228 D (160-400) X10*3/uL MPV 10.1 (9.4-12.3) fL Immature Gran % (Auto) 0.2 (0.0-0.4) % Neut % (Auto) 61.8 (45-73) % Lymph % (Auto) 27.1 (20-40) % Grundy % (Auto) 6.9 (2-11) % Eos % (Auto) 3.3 (0-4) % Baso % (Auto) 0.7 (0-2) % Lymph # (Auto) 2.5 (1.2-4.9) X10*3/uL Grundy # (Auto) 0.6 (0.1-1.2) X10*3/uL Eos # (Auto) 0.3 (0.0-0.4) X10*3/uL Baso # (Auto) 0.1 (0.0-0.2) X10*3/uL Abs Immat Gran (auto) 0.02 (0.00-0.03) X10*3/uL Absolute Neuts (auto) 5.7 (2.0-8.3) x10*3/uL Absolute Nucleated RBC 0.000 (0.0-0.012) X10*3/uL Nucleated RBC % (auto) 0.0 (0.0-0.2) /100WBC Sodium 139 (135-145) mmol/L Potassium 3.3 D (3.3-5.1) mmol/L Chloride 105 (96-108) mmol/L Carbon Dioxide 25 (22-29) mmol/L Anion Gap 12 (12-20) BUN 11 (9-16) mg/dL Creatinine 0.67 (0.5-1.4) mg/dL Estim Creat Clear Calc 95.9 Estimated GFR > 60 Random Glucose 90 (60-115) mg/dL Calcium 8.9 (8.4-10.2) mg/dL Total Bilirubin 0.3 (0.0-1.0) mg/dL Direct Bilirubin 0.1 (0.0-0.5) mg/dL AST 20 (5-31) U/L ALT 14 (0-31) U/L Alkaline Phosphatase 94 (39-117) U/L Total Protein 7.4 (6.5-8.0) g/dL Albumin 4.2 (3.5-5.0) g/dL Urine Test NEGATIVE (NEGATIVE) Hep Bs Antigen Negative (Negative) Hep Bs Antibody REACTIVE (Nonreactive) Hep B Core Total Ab Nonreactive (Nonreactive) Hepatitis C Ab (EIA) Nonreactive (Nonreactive) HIV 1&2 Ab/P24 Ag 4thGn Nonreactive (Nonreactive) Prescription Management I considered prescription management with: Antiviral Discharge Plan Discharge Clinical Impression: Exposure to body fluid due to accidental needlestick injury Patient Disposition: Home, Self-Care Instructions: Needle Stick Injuries (ED) Additional Instructions: Thank you for choosing [facility]'s Emergency Department for your care today. Thankfully your hepatitis C, hepatitis-B, and HIV testing were all negative. Additionally the source patient's HIV, hepatitis-B, and hepatitis-C testing were all negative. This means you are at an extremely low risk for saige any of these diseases secondary to your accidental needle stick today. At this time there is no indication for admission to the hospital or continued ED observation, and it is safe to discharge you home. As an extra precaution we are treating you with a 28 day course of post exposure prophylaxis, with a medication called Biktarvy. Please take this as prescribed until finished. Please follow up with your occupational health provider, as well as your primary care physician for re-evaluation, additional management of your symptoms, repeat testing as appropriate, and continued preventative care. If you do not have a primary care physician, please call the [facility] at [phone] to establish a new primary care physician. While waiting to establish your new primary care physician, you can call our Walk-in Care Clinic at [phone] for non-emergency needs. Please return to the emergency department if you develop a severe or sudden change in your symptoms, a fever over 100.4 that does not improve with Tylenol or Ibuprofen, recurrent vomiting, or any other new or worsening symptoms or concerns. Prescriptions: New Biktarvy 50-200-25 mg tablet 1 tab PO DAILY Qty: 28 0RF ondansetron 4 mg tablet,disintegrating 4 mg PO Q8H PRN (Reason: nausea and vomiting) Qty: 14 0RF No Action Humira Pen 40 mg/0.8 mL pen injector kit subcut Referrals: [facility] [Outside] Clinical Impression: Exposure to body fluid due to accidental needlestick injury Liliana Waters MD [Primary Care Provider, Endocrinology] Clinical Impression: Exposure to body fluid due to accidental needlestick injury Interventions: ED Discharge Assessment Last Done: 08/11/25 02:35 Discharge Date/Time: 08/11/25 02:36 Print Language: Kazakh
[2025-08-11 00:02] LABS: Hematocrit 39.9 % (37.0-47.0); Hemoglobin 12.8 g/dl (12.0-16.0); Imm Gran Abs Auto 0.02 X10*3/uL (0.00-0.03); Imm Gran Pct Auto 0.2 % (0.0-0.4); Lymphocytes Absolute Auto 2.5 X10*3/uL (1.2-4.9); MANUAL DIFF FLAG NO; Mean Corpuscular HGB Conc 32.1 g/dl (31.0-35.0); Mean Corpuscular Hemoglobin 28.9 pg (27.0-33.0); Mean Corpuscular Volume 90.1 fL (80.0-98.0); NRBC Abs Auto 0.000 X10*3/uL (0.0-0.012); NRBC Pct Auto 0.0 /100WBC (0.0-0.2); Platelet Count 228 X10*3/uL (160-400); Red Blood Count 4.43 X10*6/uL (4.20-5.50); White Blood Count 9.2 X10*3/uL (4.8-10.8)
[2025-08-11 00:25] LABS: Alanine Aminotransferase 14 U/L (0-31); Albumin Level 4.2 g/dL (3.5-5.0); Alkaline Phosphatase 94 U/L (39-117); Anion Gap 12 (12-20); Aspartate Amino Transferase 20 U/L (5-31); Blood Urea Nitrogen 11 mg/dL (9-16); Calcium 8.9 mg/dL (8.4-10.2); Carbon Dioxide 25 mmol/L (22-29); Chloride 105 mmol/L (96-108); Creatinine Clr Calc Pharmacy 95.9; Estimated Glomerular Filt Rate > 60; Potassium 3.3 mmol/L (3.3-5.1); Sodium 139 mmol/L (135-145); Total Protein 7.4 g/dL (6.5-8.0)
[2025-08-11 00:42] LABS: HBS Num1 145.03 mIU/mL (0-7.99); HBc Num1 0.27 S/CO (0.00-0.79); HBsAGNum1 0.32 S/CO (0.00-0.99); HIV Num 1 0.07 S/CO (0.00-0.99); Hepatitis B Surface Antigen Negative (Negative); ~HepC Num1 0.10 S/CO (0.00-0.79); ~Hepatitis B Surface Antibody REACTIVE (Nonreactive); ~Hepatitis C Antibody Nonreactive (Nonreactive)
[2025-08-11 01:02] LABS: UPreg QC Valid YES
[2025-08-11] MEDS: Bictegrav/Emtricit/Tenofov Ala TABLET 1 TAB PO (02:30)
[2025-08-11 02:35] VITALS: BP 109/65; PULSE 55; RESP 16; TEMP 36.2; O2SAT 100
== END 2025-08-11 02:36 | disposition home or self-care (01) ==
PROVIDERS: Physician Assistant; Emergency Provider Emergency Medicine; PCP Internal Medicine
DX: S61.439A Puncture wound without foreign body of unspecified hand, initial encounter (principal); W26.9XXA Contact with unspecified sharp object(s), initial encounter; Y93.9 Activity, unspecified; Y92.9 Unspecified place or not applicable; Y99.0 Civilian activity done for income or pay; Z77.21 Contact with and (suspected) exposure to potentially hazardous body fluids; Z79.899 Other long term (current) drug therapy
CPT/HCPCS: 36415; 80048; 80076; 81025; 85025; 86704; 86706; 86803; 87340; 87389; 99283; 99284